=== PATIENT | female | born 1995 | race Caucasian/White ===

== ENCOUNTER 2017-01-08 11:39 | Emergency (ER) | payer OTHER ==
[2017-01-08] MEDS ORDERED: TDAP ADULT 0.5 ML INJ (BOOSTRIX) IM ONE (11:46)
[2017-01-08 11:47] VITALS: BP 125/62; PULSE 85; TEMP 98; O2SAT 96
--- NOTE | 2017-01-08 12:26 | EDPHY ---
HPI/HX/ROS/PE/MDM Narrative: CHIEF COMPLAINT: Finger laceration HPI: The patient is a 21-year-old female with no significant past medical history. Just prior to arrival at work, the patient accidentally cut the dorsal surface of her left middle finger with scissors. Laceration occurred over the PIP joint. No numbness, weakness or tingling. Mild bleeding was controlled with pressure. REVIEW OF SYSTEMS: Aside from elements discussed in the HPI, a comprehensive 10-point review of systems was reviewed and is negative. PMH: None significant. SOCIAL HISTORY: Works as a hairdresser. Tetanus status is unknown. PHYSICAL EXAM: General:Patient is alert, in no acute distress. Extremities: Left hand: A 1.5 cm total length laceration in the shape of you is present over the dorsal PIP joint. No underlying deep structures are involved. The patient has 5/5 strength with flexion and extension at all joints of this finger. No active bleeding. Neuro: Oriented x3. Normal motor function. Normal sensory function. ED Course: Procedure: Laceration repair. Verbal consent was obtained from the patient. The 1.5 cm laceration on the left middle finger was anesthetized in the usual fashion. The wound was irrigated, draped and explored to its base. No foreign material was identified. There were no deep structures involved. No tendon injury was identified. The wound was repaired with 3 sutures of 5-0 prolene. Good approximation was obtained. The procedure was performed by myself. MDM: Uncomplicated finger laceration without evidence of tendon or neurovascular injury. - Data Points Medications Given: Discontinued Medications Diphtheria/Tetanus/Acell Pertussis (Boostrix) 0.5 ml IM .ONCE ONE Stop: 01/08/17 11:47 Last Admin: 01/08/17 11:55 Dose: 0.5 ml General Time Seen by Provider: 01/08/17 11:47 Initial Vital Signs: Initial Vital Signs Temperature (C) 36.6 C 01/08/17 11:45 Heart Rate 85 01/08/17 11:45 Respiratory Rate 18 01/08/17 11:45 Blood Pressure 125/62 H 01/08/17 11:45 O2 Sat (%) 96 01/08/17 11:45 O2 Delivery Mode Room Air Allergies/Adverse Reactions: No Known Allergies Allergy (Verified 05/07/15 08:03) Home Medications: Medication Instructions Recorded Sertraline HCl 10/04/15 ZOLMitriptan [Zomig] 2.5 mg PO Q2-3PRN PRN #10 tab 10/04/15 Departure - Departure Disposition: Home, Routine, Self-Care Clinical Impression: Finger laceration Qualifiers: Encounter type: initial encounter Qualified Code(s): S61.219A - Laceration without foreign body of unspecified finger without damage to nail, initial encounter Condition: Good Instructions: Finger Laceration (ED) Additional Instructions: Sutures out in 10-14 days. Return to the Emergency Department for fever, redness, discharge from wound, increasing pain or other worsening of condition.
[2017-01-08 12:53] VITALS: RESP 16
== END 2017-01-08 12:44 | disposition home or self-care (01) ==
LOC: CED 11:39
PROC: 0HQGXZZ Repair Left Hand Skin, External Approach (ICD-10-PCS; principal; 2017-01-08)
PROC: 3E0234Z Introduction of Serum, Toxoid and Vaccine into Muscle, Percutaneous Approach (ICD-10-PCS; principal; 2017-01-08)
DX: S61.213A Laceration without foreign body of left middle finger without damage to nail, initial encounter (principal); Z23 Encounter for immunization; W27.2XXA Contact with scissors, initial encounter; Y92.69 Other specified industrial and construction area as the place of occurrence of the external cause; Y99.0 Civilian activity done for income or pay; Y93.89 Activity, other specified
CPT/HCPCS: L3925

== ENCOUNTER 2017-02-19 12:12 | Emergency (ER) | payer OTHER ==
[2017-02-19 12:22] VITALS: RESP 16
[2017-02-19] MEDS ORDERED: ALBUTEROL 3 ML DEYVIAL IH ONE (12:35)
[2017-02-19] MEDS ORDERED: predniSONE 20 MG TAB PO ONE (12:35)
--- NOTE | 2017-02-19 12:38 | EDPHY ---
H & P Time Seen by Provider: 02/19/17 12:17 HPI/ROS: CHIEF COMPLAINT: cough, chest tightness HISTORY OF PRESENT ILLNESS: This is a 21-year-old female who was ill with a significant upper respiratory infection, fevers, sore throat, and thought to possibly have a croup type of an illness 1/2 weeks ago. At that time she was advised to continue using her meter dose inhalers. Symptoms gradually improved and the patient was well a week ago. 2 days ago she developed frequent coughing , not productive of any sputum, nasal congestion, nasal discharge and a sore throat. Yesterday she developed chest burning discomfort as well as increased coughing. Cough is occasionally productive of greenish sputum. No fevers. Patient tried her albuterol meter dose inhaler without much relief. She does not believe that she is wheezing. She has started taking Mucinex. She has no fever currently. No palpitations or lightheadedness. No syncope. REVIEW OF SYSTEMS: Aside from elements discussed in the HPI, a comprehensive 10-point review of systems was reviewed and is negative. PAST MEDICAL HISTORY: History of asthma. No history of coronary artery disease , diabetes, hypertension, hypercholesterolemia, thromboemboli or family history of clotting disorders. SOCIAL HISTORY: Nonsmoker. No illicit drug use. VITAL SIGNS: see nurse's notes. GENERAL: Well-developed, well-nourished, in no acute distress. Frequent coughing. Sounds congested. HEENT: Atraumatic Eyes: PERRL, EOMI, no conjunctival injection. Ears: TM clear bilaterally. Nose: No discharge. Mouth: moist mucous membranes. Pharynx: Mild erythema, no exudates, no swelling, no abscess. Uvula is midline. NECK: Supple, no adenopathy, no meningismus, no tenderness. Negative Kernig's and Brudzinski's. LUNGS: Clear to auscultation bilaterally, no wheezes, rhonchi or rales. CARDIAC: Regular rate and rhythm, no rubs, murmurs or gallops. ABDOMEN: Soft, nontender, bowel sounds normal. BACK: No CVA tenderness. EXTREMITIES: Normal, no edema, FROM. NEURO: Alert and oriented, grossly nonfocal. SKIN: Warm and dry, no rash. PSYCHIATRIC: Normal mentation, no agitation. Smoking Status: Current every day smoker Constitutional: Initial Vital Signs Temperature (C) 37.1 C 02/19/17 12:19 Heart Rate 75 02/19/17 12:19 Respiratory Rate 16 02/19/17 12:19 Blood Pressure 139/87 H 02/19/17 12:19 O2 Sat (%) 98 02/19/17 12:19 O2 Delivery Mode Room Air Allergies/Adverse Reactions: No Known Allergies Allergy (Verified 05/07/15 08:03) Home Medications: Medication Instructions Recorded Sertraline HCl 10/04/15 ZOLMitriptan [Zomig] 2.5 mg PO Q2-3PRN PRN #10 tab 10/04/15 AZITHROMYCIN [Z-PACK] 250 - 500 mg PO DAILY #6 tab 02/19/17 Benzonatate [Tessalon Pearles (RX)] 100 mg PO TID PRN #20 cap 02/19/17 predniSONE [prednisone 10mg (RX)] 40 mg PO DAILY 3 Days 02/19/17 Medical Decision Making ED Course/Re-evaluation: Suspect post viral bronchitis with bronchospasm. Patient received albuterol nebulizer treatment as well as prednisone 60 mg. On re-examination she reports diminished chest tightness and improved air flow. She has isolated wheeze in the right base. DuoNeb was administered. She was discharged with prescription for azithromycin, instructions to continue using her meter dose inhaler, 2 additional days of prednisone, information regarding appropriate [id number] therapies. She was also given a prescription for Tessalon Perles to use as needed. Differential Diagnosis: After history and physical examination, the differential for chest tightness and cough was considered, including but not limited to, viral versus bacterial bronchitis, asthma, COPD, pulmonary emboli, upper respiratory infection, lower respiratory infection, and bronchospasm. - Data Points Medications Given: Discontinued Medications Albuterol (Proventil Neb) 3 ml IH EDNOW ONE Stop: 02/19/17 12:36 Last Admin: 02/19/17 12:45 Dose: 3 ml Albuterol/Ipratropium (Duoneb) 3 ml IH EDNOW ONE Stop: 02/19/17 13:07 Last Admin: 02/19/17 13:09 Dose: 3 ml Prednisone (Prednisone) 60 mg PO EDNOW ONE Stop: 02/19/17 12:36 Last Admin: 02/19/17 12:50 Dose: 60 mg Departure - Departure Disposition: Home, Routine, Self-Care Clinical Impression: Bronchitis Upper respiratory infection Qualifiers: URI type: unspecified viral URI Qualified Code(s): J06.9 - Acute upper respiratory infection, unspecified; B97.89 - Other viral agents as the cause of diseases classified elsewhere Condition: Good Instructions: Acute Bronchitis (ED), How to Use a Nebulizer (ED), Allergies (ED ), Bronchospasm (ED) Additional Instructions: Please use the metered dose inhaler to help control your coughing and and chest tightness. You been given a prescription of prednisone. Please take this as directed for the next 2 days starting tomorrow. You been given a prescription of azithromycin. Please begin taking this as directed. Over the counter cold medications often contain both antihistamines and decongestants. If you have a runny nose, take an antihistamine. Antihistamines are Zyrtec, Claritin, Jenny, Benadryl etc If you are congested, take a decongestant. Decongestants are Sudafed. Flonase nasal spray is also form of a decongestant. Afrin nasal spray is also a decongestant. If you have a sore throat, use Tylenol, or ibuprofen. Throat lozenges, throat sprays, or salt water gargles may also be helpful. Seek care urgently or follow up at the emergency department if he develop a fever, worsening symptoms despite the above treatment, shortness of breath, chest pain, vomiting, or other concerns. Referrals: NONE *PRIMARY CARE P,. [Primary Care Provider] - As per Instructions Prescriptions: AZITHROMYCIN [Z-PACK] 250 - 500 mg PO DAILY #6 tab Benzonatate [Tessalon Pearles (RX)] 100 mg PO TID PRN #20 cap PRN Reason: Cough predniSONE [prednisone 10mg (RX)] 40 mg PO DAILY 3 Days
[2017-02-19] MEDS ORDERED: IPRATROPIUM/ALBUTEROL 3 ML DEYVIAL IH ONE (13:06)
[2017-02-19 13:43] VITALS: BP 137/86; PULSE 80; TEMP 98.2; O2SAT 96
== END 2017-02-19 13:34 | disposition home or self-care (01) ==
LOC: CED 12:12
DX: J20.9 Acute bronchitis, unspecified (principal); J06.9 Acute upper respiratory infection, unspecified; B97.89 Other viral agents as the cause of diseases classified elsewhere; J45.909 Unspecified asthma, uncomplicated; F17.200 Nicotine dependence, unspecified, uncomplicated